=== PATIENT | male | born 1940 | race Caucasian/White ===

== ENCOUNTER → 2017-11-06 | Outpatient (CLI) | payer MEDICARE ==
[~2017-11-06] MED LIST: AMIO200T5 PO; AMLO5TAB2 PO; CYAN25002 SL; DABI150C PO; LACT1CAP78 PO; LOSA100T29 PO; ROSU20TA PO
== END | disposition home or self-care (01) ==
LOC: OIH 09:53
PROVIDERS: ATTEND Internal Medicine
DX: R19.4 Change in bowel habit (principal)
CPT/HCPCS: 74018